=== PATIENT | male | born 1960 | race Two or more races ===

== ENCOUNTER 2020-01-04 10:46 | Emergency (ER) | payer OTHER ==
[~2020-01-04] VITALS: Ht 170.2 cm; Wt 81.3 kg
[2020-01-04 10:57] VITALS: BP 144/80
--- NOTE | 2020-01-04 11:19 | NUR ---
PT WITH C/O RL BACK PAIN, PT WITH HX CHRONIC BACK PAIN. THIS HAS WORSENED OVER THE LAST 2 DAYS. DENIES NUMBESS, RADIATING TO LEGS. URINARY SYMPTOMS.
[2020-01-04] MEDS ORDERED: DIAZEPAM 5 MG TABLET PO ONE (11:30)
[2020-01-04] MEDS ORDERED: KETOROLAC 30 MG/1 ML IM ONE (11:30)
[2020-01-04] MEDS ORDERED: KETOROLAC 30 MG/1 ML ONE (11:52)
[2020-01-04] MEDS ORDERED: DIAZEPAM 5 MG TABLET ONE (11:52)
== END 2020-01-04 13:22 | disposition home or self-care (01) ==
LOC: ED 11:26
DX: S39.012A Strain of muscle, fascia and tendon of lower back, initial encounter (principal); M51.36 Other intervertebral disc degeneration, lumbar region; I10 Essential (primary) hypertension; F17.210 Nicotine dependence, cigarettes, uncomplicated; X58.XXXA Exposure to other specified factors, initial encounter; Y93.89 Activity, other specified; Y92.89 Other specified places as the place of occurrence of the external cause; Y99.8 Other external cause status
CPT/HCPCS: 72110; 96372; 99283; 99406; J1885